=== PATIENT | male | born 1980 | race Caucasian/White ===

== ENCOUNTER 2017-11-22 13:51 | Emergency (ER) | payer MEDICAID, SELFPAY ==
[2017-11-22] VITALS (7 sets, daily range): BP systolic 135–172; BP diastolic 70–117; PULSE 98–142; RESP 14–20; TEMP 36.3; O2SAT 94–99; BMI 29.0
--- NOTE | 2017-11-22 14:16 | EKG12_ITS ---
Test Reason : MEDICAL CLEARANCE Blood Pressure : / mmHG Vent. Rate : 120 BPM Atrial Rate : 120 BPM P-R Int : 158 ms QRS Dur : 094 ms QT Int : 316 ms P-R-T Axes : 024 013 019 degrees QTc Int : 446 ms Sinus tachycardia Inferior infarct , age undetermined Abnormal ECG Confirmed by TAI LAMAS, RANCHO ([id number]), development editor RUMA LACKEY ([id number]) on 11/27/2017 2:17:43 PM Referred By: RU Confirmed By:RANCHO LUJAN MD
--- NOTE | 2017-11-22 14:22 | NURSING ---
NO OLD EKGS
[2017-11-22 14:45] LABS: Absolute Lymphocyte Count 2.19 X10^3/ul (0.83-4.51); Absolute Neutrophil Count 4.4 X10^3/uL (2.0-7.7); Basophil# 0.05 X10^3/uL; Basophil% 0.6 % (0-1); Eosinophil# 0.48 X10^3/uL; Hemoglobin 15.1 g/dl (13.0-16.5); Lymphocyte # 2.19 X10^3/ul (4.0); Lymphocyte % 27.5 % (19-41); Mean Corp Hgb Conc 35.1 g/gl (32-36); Mean Corpuscular Volume 91.1 fL (80-94); Mean Platelet Vol. 11.7 fl (6.2-12.0); Monocyte# 0.86 X10^3/uL; Monocyte% 10.8 % (0-10); Neutrophil # 4.35 X10^3/uL (2.7-7.7); Neutrophil % 54.7 % (47-70); Platelet Count 234 K/mm3 (150-450); RBC Distribution Width CV 14.8 % (11.6-14.6); RBC Distribution Width SD 48.4 fl (35.1-43.9); Red Blood Count 4.72 M/mm3 (4.6-6.2)
[2017-11-22 14:49] LABS: Bacteria 0 SEEN /hpf (None Seen); Color, Urine Yellow (Yellow); Glucose, Dipstick 50 mg/dl (Normal); Ketone-Dipstick Negative (Negative); Leukocyte Esterase-Dipstick Negative /ul (Negative); Mucous, Urine 0 SEEN /hpf (<or=2+); Nitrite-Dipstick Negative (Negative); Occult Blood-Urine Negative /ul (Negative); Protein-Dipstick Negative (Negative); Red Blood Cells-Urine 0 SEEN /hpf (0-5); Urine Bilirubin Dipstick Negative (Negative); Urine Clarity Sl. Cloudy (Clear); Urine Urobilinogen Normal (Normal); White Blood Cells 0 SEEN /hpf (0-5)
[2017-11-22 14:51] LABS: Amphetamine Urine VISTA NEGATIVE (<1000 ng/mL); Barbiturate Urine VISTA NEGATIVE (< 200 ng/mL); Benzodiazepine Urine VISTA POSITIVE (< 200 ng/mL); Cocaine Urine VISTA NEGATIVE (< 300 ng/mL); Ecstacy Urine VISTA NEGATIVE (< 500 ng/mL); Methadone Urine VISTA NEGATIVE (< 300 ng/mL); PCP Urine VISTA NEGATIVE (< 25 ng/mL); THC Urine VISTA NEGATIVE (< 50 ng/mL); Vista UDS pH Range 7
[2017-11-22 14:56] LABS: Squamous Epithelial Cells - UA 0-5 SEEN /hpf (0-5)
[2017-11-22 14:57] LABS: POSITIVE COUNT NO; POSITIVE DIFFERENTIAL NO; POSITIVE MORPHOLOGY NO
[2017-11-22 14:58] LABS: AST(SGOT) 20 U/L (15-37); Alanine Aminotransfer ALT/SGPT 37 U/L (16-61); Albumin, Serum 3.8 g/dL (3.2-5.0); Alkaline Phosphatase 74 U/L (45-117); Anion Gap 7 (5-15); BUN 20 mg/dL (7-18); BUN/Creat Ratio 19.2 RATIO (10-20); Calcium,Total 8.6 mg/dL (8.5-10.1); Chloride 108 mmol/L (98-107); Creatinine, Serum 1.04 mg/dL (0.70-1.30); EST Glomerular Filtration Rate 86 mL/min (>60); Est Glom Filt Rate - Afr Amer 104 mL/min (>60); Estimated Creatinine Clearance 88.61 ml/min; Globulin 3.8 g/dL (2.2-4.2); Glucose 157 mg/dL (74-106); Potassium 3.9 mmol/L (3.5-5.1); Protein, Total 7.6 g/dL (6.4-8.2); Sodium Level 139 mmol/L (136-145)
[2017-11-22 15:11] LABS: Alcohol, Blood (Medical)-Serum < 3.0 mg/dL
--- NOTE | 2017-11-22 15:36 | NURSING ---
TALKED TO EVELYN, CRISIS, HE WILL BE OVER SOON
--- NOTE | 2017-11-22 15:37 | ED.DCSUM_ITS ---
- ER Visit Summary Date of Service: 11/22/17 Chief Complaint: [Agitation and abnormal behavior] History of Present Illness: The patient is a 37 M [presents the emergency department with police escort for agitation and paranoia. Patient presents with his mother also. Patient apparently was seen by psychiatrist today . Patient was pink slipped by police. Patient having auditory and visual hallucinations. [facility] he is certain that they had formaldehyde in the water and they sprayed him with formaldehyde. Patient states that there is a man that has control over his brain. Mother states the patient's been talking to himself more of late. Patient denies suicidal or homicidal ideation at this time. Patient's current medications include Seroquel and Zoloft which he states he has been taking regularly.] Physical Examination: [HEENT-PERRLA, EOMI. Cranial nerves II through XII grossly intact. TMs clear. Mucous membranes moist. No adenopathy. Cardiovascular-regular rate and rhythm without murmur or ectopy Lungs-clear to auscultation, chest wall stable without crepitus or subcu emphysema Abdomen-normoactive bowel sounds, soft, nontender, no rebound or rigidity, no peritoneal signs. Extremities-intact ?4, normal range of motion, normal pulses, atraumatic] Test Results: [EKG obtained arrival shows sinus tachycardia with a rate of 120. CBC with differential is normal. Chemistries unremarkable. LFTs were normal. Urinalysis was normal. Toxicology screen was positive for benzodiazepines. Alcohol was normal.] Emergency Department Course and Treatment: [Patient to be evaluated by crisis] Treatment Plan: [Crisis for transfer to psychiatric facility for further stabilization and treatment]. Care of patient turned over the evening physician Disposition: [Pending] Impression: [Decompensated paranoid schizophrenia] This note was generated with [employer] dictation software. It may contain incorrect words, spelling, and punctuation that were not noted in review of the chart prior to signing ED Disposition - Plan for ED Patient: Chief Complaint: Mental Health Referrals: Care Physician,No Primary [Primary Care Provider] -
--- NOTE | 2017-11-22 15:53 | NURSING ---
EVELYN, CRISIS, IN ROOM
[2017-11-22] MEDS: Ziprasidone IM 20 MG/ML VIAL 10 MG IM (17:32)
--- NOTE | 2017-11-22 18:08 | NURSING ---
ACCEPTED AT [facility]
--- NOTE | 2017-11-22 19:15 | NURSING ---
CALLED [facility] AT [phone] FOR RIDE WILL BE ROUGHLY AN HOUR AND HALF BEFORE ARRIVAL. BEST TIME FRAME OUT OF ALL [facility]
== END 2017-11-22 19:40 ==
PROVIDERS: Emergency Provider Emergency Medicine
DX: F20.0 Paranoid schizophrenia (principal); F31.9 Bipolar disorder, unspecified; Z72.0 Tobacco use
CPT/HCPCS: 80053; 80307; 80320; 81001; 85025; 93005; 96372; 99284; G0480; J3486

== ENCOUNTER 2021-04-14 20:36 | Emergency (ER) | payer MEDICAID, SELFPAY ==
[2021-04-14 20:36] VITALS: BP 133/104; PULSE 99; RESP 18; TEMP 37.3; O2SAT 96; BMI 27.4
--- NOTE | 2021-04-14 21:10 | RAD_ITS ---
STUDY: X-RAY - RIGHT ANKLE REASON FOR EXAM: Male, 40 years old. INJURY TECHNIQUE: 3 view(s) of the ankle. COMPARISON: None. FINDINGS: Normal visualized distal tibia and fibula. Normal medial and lateral malleoli. Normal tibiotalar articulation and ankle mortise. Normal visualized talus and calcaneus. The visualized subtalar, talonavicular, calcaneocuboid and tarsal articulations are normal. There is no demonstrated fracture. The soft tissue structures are unremarkable. RAD/Ankle min 3 Views IMPRESSION: Normal x-ray examination of the ankle. Electronically Signed: Chas Gong MD at 22:02 EDT , Service support ,
--- NOTE | 2021-04-14 21:41 | ED.VIS.LOWEX ---
HPI History of Present Illness Chief Complaint: Lower Extremity Injury Informant: patient Narrative Narrative: 40-year-old male states he was walking along the road when he stepped off the concrete resulting in inversion injury to the right foot. He states the distal sibley hit the concrete. He notes painful range of motion. He denies any knee pain. No foot pain. No significant swelling. He notes chronic bilateral foot pain from walking long distances [facility] Medical History Schizophrenia Home Medications NK 04/14/21 [History Last Taken Unknown] Allergy/AdvReac Type Severity Reaction Status Date / Time No Known Allergies Allergy Verified 11/22/17 13:55 Social History (Updated 04/14/21 @ 21:[address] Angel Lopez DO) Smoking Status: Current every day smoker tobacco type: cigarettes substance use type: does not use ROS ROS ED Constitutional Constitutional ED: Denies chills or weight loss Eyes Eyes: Denies change in vision or diplopia ENT ENT ED: Denies ear pain, rhinorrhea or sore throat Cardiovascular Cardiovascular: Denies chest pain, orthopnea, palpitations or racing heartbeat Respiratory/Chest Respiratory/Chest: Denies cough, dyspnea or orthopnea Gastrointestinal Gastrointestinal: Denies abdominal pain, diarrhea, nausea or vomiting Genitourinary Genitourinary ED: Denies dysuria, hematuria or urinary frequency Musculoskeletal Musculoskeletal: Reports other Details: Bilateral foot pain. Right ankle pain ; Denies arthralgias or myalgias Integumentary Denies abscess or rash Neurologic Neurologic: Denies headache(s) or weakness Psychiatric Psychiatric: Denies anxiety, depression, suicidal ideation or suicidal thoughts Endocrine Endocrinology: Denies polydipsia, polyphagia or polyuria Allergic/Immunologic Allergic/Immunologic ED: Denies mouth swelling, tongue swelling or urticaria EXAM Physical Exam Const Vital Signs: 04/14/21 20:36 Temperature 99.1 F Temperature Source Oral Pulse Rate 99 Respiratory Rate 18 Blood Pressure 133/104 H Blood Pressure Mean 113 Pulse Ox 96 Oxygen Delivery Method Room Air Positive well nourished and well developed General Appearance ED: well developed HEENT Reports normocephalic, head/scalp atraumatic and moist mucous membranes Eyes PERRL and EOMs intact bilaterally Neck no lymphadenopathy, supple and no JVD Resp normal respiratory effort and clear to auscultation bilaterally Cardio regular rate, regular rhythm and no murmurs GI normal to inspection, nondistended, normoactive bowel sounds and non-tender Palpation: soft Back/Spine no CVA tenderness and normal ROM Extremity Extremity Narrative: Feet are demonstrating cracked skin. Mild swelling to the feet. He has tenderness over the mortise joint. No fibular head tenderness no fifth metatarsal pain. General Extremety ED: Negative for edema General Extremity: Negative for edema Neuro oriented x3 and CN's II-XII intact bilaterally Sensorium / Orientation: alert Motor Exam: strength 5/5 throughout Psych mental status grossly normal Mood & Affect: Negative for depressed or tearful Skin no rashes or lesions noted and no wounds MDM MDM MDM Narrative Medical decision making narrative: My interpretation of the plain films of the right ankle is no acute fracture. Patient will be Juvencio wrapped given Motrin and home-going instructions. Return if worsening or concerns Discharge Plan Triage Chief Complaint: Lower Extremity Injury ED Provider: Angel Lopez Dx/Rx/DC Orders Clinical Impression: Right ankle sprain Instructions: ED Ankle Sprain (Adult) Prescriptions: No Action NK RF: 0 Primary Care Provider: Care Physician,No Primary Referrals: Claudine Anton [NON-STAFF] - 10-14 Days if not better Care Physician,No Primary [Primary Care Provider] - Disposition Disposition: Home, Self Care
[2021-04-14] MEDS: Ibuprofen 400 MG Tablet 800 MG PO (22:08)
== END 2021-04-14 22:08 | disposition home or self-care (01) ==
PROVIDERS: Emergency Provider Emergency Medicine
DX: S93.401A Sprain of unspecified ligament of right ankle, initial encounter (principal); F17.210 Nicotine dependence, cigarettes, uncomplicated; Y93.01 Activity, walking, marching and hiking
CPT/HCPCS: 73610; 99284